=== PATIENT | female | born 1985 | race Two or more races ===

== ENCOUNTER 2020-07-20 13:00 | Emergency (ER) | payer OTHER ==
[~2020-07-20] VITALS: Ht 165.1 cm; Wt 90.7 kg
[2020-07-20] MEDS ORDERED: TOPROL XL25 M1 (13:09)
[2020-07-20] MEDS ORDERED: CRESTOR5 MG (13:09)
== END 2020-07-20 19:41 | disposition home or self-care (01) ==
LOC: ER 13:00
DX: N93.8 Other specified abnormal uterine and vaginal bleeding (principal)

== ENCOUNTER 2020-07-30 18:20 | Emergency (ER) | payer OTHER ==
[~2020-07-30] VITALS: Ht 165.1 cm; Wt 89.8 kg
[~2020-07-30 18:20] MED LIST: CRESTOR5 MG; TOPROL XL25 M1
[2020-07-30] MEDS ORDERED: MEDROXYPROGESTE10 MG PO (22:34)
== END 2020-07-30 22:43 | disposition home or self-care (01) ==
LOC: ER 18:20
DX: N93.8 Other specified abnormal uterine and vaginal bleeding (principal)